=== PATIENT | female | born 1990 | race Caucasian/White ===

== ENCOUNTER 2024-01-20 17:25 | Inpatient (IN) ==
[2024-01-20] MEDS ORDERED: LACTATED RINGER'S 1,000 ML IV PRN (18:27)
[2024-01-20] MEDS ORDERED: CALCIUM CARBONATE 500 MG CHEWABLE TAB PO PRN (18:27)
[2024-01-20] MEDS ORDERED: ACETAMINOPHEN 500 MG TAB PO PRN (18:27)
[2024-01-20] MEDS ORDERED: OXYTOCIN 30 UNITS/NSS 30 UNITS/500 ML BAG IV PRN ×2 (18:27)
--- NOTE | 2024-01-20 18:41 | History & Physical Report ---
Date of Service January 20, 2024 Assessment & Plan (1) premature rupture of membranes (PPROM) with unknown onset of labor: Plan: Tata is a 33-year-old G2, P0 currently at 35 weeks 0 days gestational age presents with premature rupture of membranes. Discussed diagnosis of premature rupture of membranes and discussed recommendation for delivery. Discussed reasons for indication for delivery including increased risk for infection which can result in increased need for NICU admissions, infections and . Discussed treatment for GBS as her status for GBS is unknown. Discussed reasons for treating GBS including risk of GBS sepsis, meningitis and significant risk of mortality if untreated. I recommend we start induction and treatment for GBS as soon as possible. Multiple questions answered to the patient and her partner's satisfaction. The patient and her partner are agreeable to staying for delivery but are requesting to start oxytocin at 4 to 6 hours from timing of rupture. Is requesting another hour or 2 before starting penicillin but at this point is planning on proceeding with treatment for GBS. Discussed induction with oxytocin and discussed standard protocols for oxytocin induction. Category 1 tracing/reactive NST noted. Normal vitals. History of Present Illness Primary Care Provider: Sherrie Bain MD Tata is a 33-year-old G2, P0 currently at 35 weeks 0 days gestational age presents with rupture of membranes. Denying painful contractions or vaginal bleeding. Good movement reported. has been complicated by Rh- declining RhoGAM. Also declined Tdap and syphilis testing at 28 weeks. OB Labs: Blood Type AB Negative 07/16/23 Antibody Screen NEGATIVE 12/10/23 Hgb 11.9 g/dl (12.0-16.0) L 12/10/23 Hct 36.1 % (37.0-47.0) L 12/10/23 MCV 89.2 fL (80.0-100.0) 07/16/23 Plt Count 286 K/uL (130-400) 07/16/23 Rubella IgG Antibody Immune (Immune) 07/16/23 RPR Nonreactive (Nonreactive) 07/16/23 Hep Bs Antigen NON-REACTIVE (NON-REACTIVE) 07/16/23 Hepatitis C Ab (EIA) NON-REACTIVE (NON-REACTIVE) 07/16/23 HIV (1&2) Ag & Ab Conf NON-REACTIVE (NON-REACTIVE) 07/16/23 Glucose 1 Hr 50 gm 126 mg/dl (70-130) 12/10/23 OB Optional Labs: Chlamydia trachomatis RNA Not Detected (NotDetected) 07/16/23 Neisseria gonorrhoeae RNA Not Detected (NotDetected) 07/16/23 Labs Reviewed: cfdna-low risk--mln horizon 14-negative--mln Allergies Allergy/AdvReac Type Severity Reaction Status Date / Time No Known Allergies Allergy Verified 01/17/24 09:21 Home Medications Medication Instructions Recorded Confirmed Type vits no.124-ferrous fum 1 tab PO DAILY 01/20/24 01/20/24 History 27 mg iron-folic acid 800 mcg tablet ( Vitamin) Patient History Medical History (Updated 01/20/24 @ 18:36 by Lawson Valadez MD) Dyslipidemia Surgical History History of appendectomy Family History Mother Diabetes Hypertension Denies family history of Ovarian cancer Prostate cancer Myocardial infarction Breast cancer Colorectal cancer Uterine cancer Social History (Updated 01/20/24 @ 17:31 by Mayra Bolton, PROSPER) Smoking Status: Never smoker Second Hand Exposure: No; Do You Dip or Chew Tobacco: No; Hx Alcohol Use: No (not during ) Hx Substance Use: No Preferred Language: Egyptian Communication Ability: Effective Visual Impairment: No Limitations Hearing Ability: Normal Baseball Coach Required: No Beliefs That Will Affect Care: Mu-Ism Mu-Ism Beliefs: "Nothing foreign in body unless discussion with " , Spiritual and Cultural marital status: marital status details: Roberto Clemons [phone] Current Living Situation: Spouse Current Living Situation Comment: lives with spouse, dog current occupational status: employed current occupation: self-employed web production designer Other Information That Helps Us Care for You: No Feels Safe at Home: Yes Safety Concerns: Feels Safe At This Time Diet: regular caffeine: Yes (tea) Dental Care, Regularly: Yes Physical Activity Frequency: 3-4 Times per Week Seatbelt Use: always Sunscreen Use: Yes Gender Identity: Female Assistive Devices: None Physical Exam Genitourinary: Manual OB Exam: + cervical dilation (Visually closed on speculum exam) and + amniotic fluid (Positive pooling for clear fluid) nitrazine positive and ferning present OB Exam Monitor Tracing: + external FHT monitor used, + external uterine monitor used, + category I and + normal FHT variability Cephalic by bedside ultrasound Results & Data Vital Signs (Past 12 Hours) Vital Signs Temp Pulse Resp BP 01/20/24 17:27 36.9 C 87 20 127/74 Coding Level of Care Code None Diagnoses premature rupture of membranes (PPROM) with unknown onset of labor O42.919
[2024-01-20 19:18] LABS: Hematocrit (blood only) 38.6 % (37.0-47.0); Hemoglobin 13.1 g/dl (12.0-16.0); Mean Corpuscular Hemoglobin 31.5 pg (25.0-34.0); Mean Corpuscular Hgb Conc 33.9 g/dL (32.0-36.0); Mean Corpuscular Volume 92.8 fL (80.0-100.0); Mean Platelet Volume 10.6 fL (9.4-12.4); Platelet Count 255 K/uL (130-400); RDW Coefficient of Variation 13.4 % (11.5-14.5); RDW Standard Deviation 45.3 fL (36.4-46.3); Red Blood Count 4.16 M/uL (4.20-5.40); White Blood Count 10.66 K/ul (4.8-10.8)
[2024-01-20] MEDS: PENICILLIN GK 6 MU in DEXTROSE 5% 250 ML IV STA (21:29)
[2024-01-20] MEDS ORDERED: PENICILLIN GK 3 MU in DEXTROSE 5% 100 ML IV PRN (22:00)
[2024-01-21] MEDS: LIDOCAINE 1% LOCAL 20 ML VIAL INFIL PRN
--- NOTE | 2024-01-21 00:18 | Delivery Summary ---
Vaginal Delivery Summary Date of Service January 21, 2024 Vaginal Delivery Summary and 1st Degree LAC Progressed to 10 cm dilated, 100% effaced +2 station pushed over intact perineum without epidural and delivered a viable with weight and Apgars pending. Had the delivered without difficulty and shoulders and body quickly followed. was noted to be vigorous upon delivery and a prolonged cord clamping was initiated per patient request. Cord was then double clamped and cut. Due to the prolonged delayed cord clamping cord blood was not a be attained. The placenta delivered intact three-vessel cord gentle cord traction. Inspection of perineum vagina cervix there is noted be a small first-degree laceration which was repaired with 3-0 Vicryl continuous running stitch. Needle sponge and instrument counts are correct at the completion of the case. Both mother and stable in the immediate postdelivery. Estimated blood loss 100 mL and no complications noted [facility] Vaginal Delivery Charge Delivery Type Details: and 1st Degree LAC
[2024-01-21] MEDS ORDERED: bisacodyL 10 MG SUPP PR PRN (00:20)
[2024-01-21] MEDS ORDERED: BENZOCAINE 20% SPRY 85 APPLN/85 GM CAN EXT PRN (00:20)
[2024-01-21] MEDS ORDERED: IBUPROFEN 600 MG TAB PO PRN (00:20)
[2024-01-21] MEDS ORDERED: OXYTOCIN 30 UNITS/NSS 30 UNITS/500 ML BAG IV PRN (00:20)
[2024-01-21] MEDS ORDERED: DIPHTHER/TETAN/PERTUS Vaccine (Tdap, Adol/Adult) 0.5mL IM ONE (00:20)
[2024-01-21] MEDS ORDERED: HYDROCORTISONE ACETATE 25 MG SUPP PR PRN (00:20)
[2024-01-21] MEDS ORDERED: ACETAMINOPHEN 325 MG TAB PO PRN (00:20)
[2024-01-21] MEDS: DOCUSATE SODIUM 100 MG CAP PO SCH (07:40)
[2024-01-21] MEDS: FERROUS SULFATE 325 MG TAB PO SCH (07:40)
[2024-01-21] MEDS: PRENATAL VITAMIN 1 TAB PO SCH (07:40)
--- NOTE | 2024-01-21 08:55 | Obstetrical Progress Note ---
Date of Service January 21, 2024 Assessment & Plan (1) Vaginal delivery: Plan: 9 hours Post foll with 1 deg tear in at 35 weeks POG with PPROM Both mother and baby doing fine; baby bedside No active complains Lochia: Moderate Diet: regular OB Ambulation : Normally ; encouraged Feeding encouraged DISCHARGE tomorrow. Admission and Anticipated Discharge Date Admission Date: January 20, 2024 Supervising Physician Co-Signing Physician Notes Patient seen with resident and agree with the above findings and plan. Routine care Subjective 9 hours Post foll with 1 deg tear in at 35 weeks POG with PPROM Both mother and baby doing fine; baby bedside No active complains Lochia: Moderate Diet: regular OB Passed Urine Ambulation : Normally ; encouraged Review of Systems Review of Systems: As per HPI Physical Exam Physical Exam: General: Alert and oriented. No acute distress. CV: Regular rate and rhythm. No murmurs. Respiratory: CTA bilaterally. No rhonchi, wheezes, or crackles. No increased work of breathing. Abdomen: Positive bowel sounds. Soft, nontender, non distended. Uterus: Fundus firm and palpable suprapubic. Well contracted Lower extremities: No LE edema. No deep calf pain. Results & Data Vital Signs (Past 12 Hours) Vital Signs Temp Pulse Pulse Resp BP BP Pulse Ox 01/21/24 03:00 36.7 C 71 18 110/70 96 01/21/24 02:22 69 115/64 01/21/24 01:29 69 112/69 01/21/24 00:51 76 105/62 01/21/24 00:17 76 125/58 L 01/20/24 21:58 71 01/20/24 21:58 134/69 01/20/24 21:56 18 01/20/24 21:56 37.2 C 18 O2 Del Method 01/21/24 03:00 Room Air 01/21/24 02:22 01/21/24 01:29 01/21/24 00:51 01/21/24 00:17 01/20/24 21:58 01/20/24 21:58 01/20/24 21:56 01/20/24 21:56 Resident Activity Tracking Resident Involvement: Resident Care Provided Care Provided: OB Delivery
[2024-01-21 19:02] VITALS: RESP 16
[2024-01-21 23:41] VITALS: O2SAT 97
--- NOTE | 2024-01-22 07:06 | Obstetrical Progress Note ---
Date of Service January 22, 2024 Assessment & Plan (1) Vaginal delivery: Plan 2nd Post foll with 1 deg tear in at 35 weeks POG with PPROM Both mother and baby doing fine; baby bedside Plan: Discharge today Admission and Anticipated Discharge Date Admission Date: January 20, 2024 Supervising Physician Co-Signing Physician Notes Resident Physician Supervision Note: Discussed with Dr. Jansen and agree with findings and plan as documented in the note. Any exceptions or clarifications are listed here: [ ] Documented By: Aletha Man MD, FACOG Subjective 2nd Post foll with 1 deg tear in at 35 weeks POG with PPROM Both mother and baby doing fine; baby bedside No active complains Lochia: Moderate Diet: regular OB Passed Urine Ambulation : Normally ; encouraged Review of Systems Review of Systems: As per HPI Physical Exam Physical Exam: General: Alert and oriented. No acute distress. CV: Regular rate and rhythm. No murmurs. Respiratory: CTA bilaterally. No rhonchi, wheezes, or crackles. No increased work of breathing. Abdomen: Positive bowel sounds. Soft, nontender, non distended. Uterus: Fundus firm and palpable suprapubic. Well contracted Lower extremities: No LE edema. No deep calf pain. Results & Data Vital Signs (Past 12 Hours) Vital Signs Temp Pulse Resp BP Pulse Ox O2 Del Method 01/21/24 23:40 36.6 C 66 16 100/64 97 Room Air
[2024-01-22 09:04] VITALS: PULSE 71; TEMP 98.2
[2024-01-22 10:47] VITALS: BP 100/64
[2024-01-22] MEDS ORDERED: bisacodyL 5 MG TABEC PO SCH (20:00)
== END 2024-01-22 12:35 | disposition home or self-care (01) | DRG 807 ==
LOC: OPB 17:25 → 4S1 17:26 → 4E2 01-21 02:56